=== PATIENT | female | born 2000 | race Two or more races ===

== ENCOUNTER 2024-06-23 08:09 | Emergency (ER) | payer OTHER ==
[~2024-06-23] VITALS: Ht 157.5 cm; Wt 59.0 kg
[2024-06-23 08:20] VITALS: BP 127/88; O2SAT 100
[2024-06-23] MEDS ORDERED: PEPCID AC20 MG PO (08:58)
[2024-06-23] MEDS ORDERED: AMOX1TAB5 PO (08:58)
[2024-06-23] MEDS ORDERED: TETANUS & DIPHTHERIA TOX,ADULT 0.5 ML VIAL IM ONE (09:00)
[2024-06-23] MEDS ORDERED: KETOROLAC TROMETHAMINE 15 MG VIAL IM ONE (09:00)
[2024-06-23] MEDS ORDERED: CEFTRIAXONE SODIUM 1,000 MG VIAL IM ONE (09:00)
== END 2024-06-23 09:41 | disposition home or self-care (01) ==
LOC: ER 08:11
DX: S01.85XA Open bite of other part of head, initial encounter (principal); W54.0XXA Bitten by dog, initial encounter; Y93.89 Activity, other specified; Y92.89 Other specified places as the place of occurrence of the external cause; Y99.9 Unspecified external cause status